=== PATIENT | male | born 1980 | race Hispanic/Latino ===

== ENCOUNTER 2017-08-23 05:43 | Day surgery (SDC) | payer OTHER ==
[2017-08-23 05:43] VITALS: BMI 31.7
--- NOTE | 2017-08-23 05:59 | ED PDOC ---
Arrival/HPI - General Chief Complaint: Chest Pain Time Seen by Provider: 08/23/17 05:47 Historian: Patient - History of Present Illness Narrative History of Present Illness (Text): 08/23/17 05:54 A 37 year old male, past smoker, whose past medical history includes hypertension and LBBB on EKG, presents to the emergency department complaining of intermittent left sided chest discomfort this morning. He states that he called Dr. Arevalo this morning who advised him to come into the emergency department. He is currently asymptomatic. The patient denies fevers, chills, headache, dizziness, shortness of breath, dyspnea on exertion, cough, abdominal pain, nausea, vomiting, diarrhea, back pain, neck pain, urinary/bowel changes, or any other complaint. PMD: Dr. 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 Arevalo Time/Duration: Other (This morning) Symptom Onset: Sudden Symptom Course: Unchanged Activities at Onset: Rest, Light Context: Home Past Medical History - Provider Review Nursing Documentation Reviewed: Yes - Infectious Disease Hx of Infectious Diseases: None - Tetanus Immunization Tetanus Immunization: Unknown - Cardiac Hx Cardiac Disorders: Yes Other/Comment: Left Bundle Branch Block. Bradycardia - Pulmonary Hx Respiratory Disorders: No - Neurological Hx Neurological Disorder: No - HEENT Hx HEENT Disorder: Yes (Wears Glasses) - Renal Hx Renal Disorder: No - Endocrine/Metabolic Hx Endocrine Disorders: No - Hematological/Oncological Hx Blood Disorders: No - Integumentary Hx Dermatological Disorder: No - Musculoskeletal/Rheumatological Hx Musculoskeletal Disorders: No - Gastrointestinal Hx Gastroesophageal Reflux: Yes - Genitourinary/Gynecological Hx Genitourinary Disorders: No - Psychiatric Hx Psychophysiologic Disorder: No Hx Substance Use: No - Surgical History Other/Comment: cardiac cath - Anesthesia Hx Anesthesia Reactions: No Hx Malignant Hyperthermia: No - Suicidal Assessment Feels Threatened In Home Enviroment: No Family/Social History - Physician Review Nursing Documentation Reviewed: Yes Family/Social History: No Known Family HX Smoking Status: Former Smoker Hx Alcohol Use: Yes (Socially) Hx Substance Use: No Hx Substance Use Treatment: No Allergies/Home Meds Allergies/Adverse Reactions: Allergies No Known Allergies Allergy (Verified 08/23/17 05:50) Home Medications: Home Meds Medication Instructions Recorded Confirmed Lisinopril 20 mg PO DAILY 01/22/13 08/23/17 Review of Systems - Physician Review All systems were reviewed & negative as marked: Yes - Review of Systems Constitutional: absent: Fevers, Night Sweats Respiratory: absent: SOB, Cough Cardiovascular: Chest Pain (intermittent, left sided chest discomfort.). absent : ABDULLAHI Gastrointestinal: absent: Abdominal Pain, Stool Changes, Diarrhea, Nausea, Vomiting Genitourinary Male: absent: Urinary Output Changes Musculoskeletal: absent: Back Pain, Neck Pain Neurological: absent: Headache, Dizziness Physical Exam Vital Signs Reviewed: Yes Vital Signs Temp Pulse Resp BP Pulse Ox 08/23/17 05:57 98.0 F 112 H 17 152/89 H 100 Temperature: Afebrile Blood Pressure: Hypertensive Pulse: Tachycardic Respiratory Rate: Normal Appearance: Positive for: Well-Appearing, Non-Toxic, Comfortable Pain Distress: None Mental Status: Positive for: Alert and Oriented X 3 - Systems Exam Head: Present: Atraumatic, Normocephalic Pupils: Present: PERRL Extroacular Muscles: Present: EOMI Conjunctiva: Present: Normal Mouth: Present: Moist Mucous Membranes Neck: Present: Normal Range of Motion Respiratory/Chest: Present: Clear to Auscultation, Good Air Exchange. No: Respiratory Distress, Accessory Muscle Use Cardiovascular: Present: Regular Rate and Rhythm, Normal S1, S2. No: Murmurs Abdomen: No: Tenderness, Distention, Peritoneal Signs Back: Present: Normal Inspection Upper Extremity: Present: Normal Inspection. No: Cyanosis, Edema Lower Extremity: Present: Normal Inspection. No: Edema Neurological: Present: GCS=15, CN II-XII Intact, Speech Normal Skin: Present: Warm, Dry, Normal Color. No: Rashes Psychiatric: Present: Alert, Oriented x 3, Normal Insight, Normal Concentration Medical Decision Making ED Course and Treatment: 08/23/17 06:00 Impression: A 37 year old male presents to the emergency department complaining of left- sided chest pain this morning. Plan: -- EKG -- Chest X-ray -- Labs -- Aspirin and Plavix -- Reassess and disposition Progress Notes: Upon review of patients myocardial stress test performed on 07/06/17 shows partially reversible defects suggestive of ischemia. EKG: Ordered, reviewed, and independently interpreted the EKG. Rate : 77 BPM Rhythm : NSR Interpretation : LBBB 08/23/17 06:55 Case was d/w PMD .Accepts to his service. on consult.Call placed to service. - Lab Interpretations Lab Results: 08/23/17 06:00 Lab Results 08/23/17 06:00: Sodium 142, Potassium 4.4, Chloride 104, Carbon Dioxide 27, Anion Gap 15, BUN 17, Creatinine 0.8, Est GFR ( Amer) > 60, Est GFR (Non- Af Amer) > 60, Random Glucose 106, Calcium 9.1, Total Bilirubin 0.4, AST 29, ALT 36, Alkaline Phosphatase 51, Lactate Dehydrogenase 412, Total Creatine Kinase 265 H, CK-MB (CK-2) Pending, CK-MB (CK-2) % Pending, Troponin I < 0.01, Total Protein 7.4, Albumin 4.5, Globulin 2.8, Albumin/Globulin Ratio 1.6 08/23/17 06:00: PT 12.4, INR 1.08, APTT 29.4 I have reviewed the lab results: Yes - RAD Interpretation Radiology Orders: 08/23/17 05:58 CHEST PORTABLE [RAD] Stat - EKG Interpretation Interpreted by ED Physician: Yes Type: 12 lead EKG - Medication Orders Current Medication Orders: Discontinued Medications Aspirin (Aspirin) 325 mg PO ONCE STA Stop: 08/23/17 05:57 Last Admin: 08/23/17 06:06 Dose: 325 mg Clopidogrel Bisulfate (Plavix) 75 mg PO STAT STA Stop: 08/23/17 05:58 Last Admin: 08/23/17 06:06 Dose: 75 mg Nitroglycerin (Nitro-Bid 2% Oint) 1 ea TOP ONCE STA Stop: 08/23/17 06:46 - Scribe Statement The provider has reviewed the documentation as recorded by the Karrieibe Mulu Toure Provider Scribe Attestation: All medical record entries made by the Scribe were at my direction and personally dictated by me. I have reviewed the chart and agree that the record accurately reflects my personal performance of the history, physical exam, medical decision making, and the department course for this patient. I have also personally directed, reviewed, and agree with the discharge instructions and disposition. Disposition/Present on Arrival - Present on Arrival Any Indicators Present on Arrival: No History of DVT/PE: Yes History of Uncontrolled Diabetes: No Urinary Catheter: No History of Decub. Ulcer: No History Surgical Site Infection Following: None - Disposition Have Diagnosis and Disposition been Completed?: Yes Diagnosis: Chest pain Disposition: HOSPITALIZED Disposition Time: 06:53 Patient Problems: Current Active Problems Problem Status Onset Chest pain Acute Condition: STABLE Discharge Instructions (ExitCare): Chest Pain (ED) Forms: i3 membrane (Gambian)
[2017-08-23 06:21] LABS: HEMOGLOBIN 14.6 g/dL (14.0-18.0); MEAN CELL VOLUME 90.9 fl (80.0-105.0); MEAN CORPUSCULAR HGB CONC 34.1 g/dl (31.0-37.0); RBC 4.71 10^6/uL (3.5-6.1); RED CELL DISTRIBUTION WIDTH 12.8 % (11.5-14.5); WHITE BLOOD COUNT 5.3 10^3/ul (4.5-11.0)
[2017-08-23 06:33] LABS: ALB/GLOB RATIO 1.6 (1.1-1.8); ALBUMIN 4.5 g/dL (3.0-4.8); ALT/SGPT 36 U/L (7-56); AST/SGOT 29 U/L (17-59); BLOOD UREA NITROGEN 17 mg/dL (7-21); CALCIUM 9.1 mg/dL (8.4-10.5); GFR AFRICAN-AMERICAN > 60; GFR NON-AFRICAN AMERICAN > 60
[2017-08-23 06:43] LABS: INR 1.08 (0.93-1.08); PARTIAL THROMBOPLASTIN TIME 29.4 Seconds (25.1-36.5); PROTHROMBIN TIME 12.4 SECONDS (9.4-12.5)
[2017-08-23 06:44] LABS: TROPONIN I < 0.01 ng/mL
[2017-08-23] MEDS ORDERED: Nitroglycerin 2% Ointment Foilpak UD TOP STA (06:45)
[2017-08-23 07:03] LABS: CK-MB 3.3 ng/mL (0.0-3.6)
[2017-08-23 07:37] VITALS: O2SAT 98
[2017-08-23] MEDS ORDERED: Lidocaine 2% Inj (20ml) ONE (08:43)
[2017-08-23] MEDS ORDERED: Midazolam 2 MG/2 ML VIAL ONE ×2 (08:43→09:03)
--- NOTE | 2017-08-23 08:54 | RAD ---
HISTORY: Chest pain. COMPARISON: 08/28/2014. FINDINGS: LUNGS: No active pulmonary disease. PLEURA: No significant pleural effusion identified, no pneumothorax apparent. CARDIOVASCULAR: Normal. OSSEOUS STRUCTURES: No significant abnormalities. VISUALIZED UPPER ABDOMEN: Normal. OTHER FINDINGS: None. IMPRESSION: No active disease. No significant interval change compared to the prior examination(s).
--- NOTE | 2017-08-23 09:11 | CARD ---
APPROVED REPORT EKG Measurement Heart [id number] <Conclusion> Normal sinus rhythm Left bundle branch block Abnormal ECG
--- NOTE | 2017-08-23 11:12 | CARDCATH ---
PROCEDURE DATE: 08/23/2017 HISTORY: The patient is a 37-year-old male with multiple cardiac risk factors who presented to the emergency room with chest pain including chest pain at rest. In reviewing his chart, he had a stress test performed at [facility] recently, which revealed ischemic areas in the anterior apical segment. The patient's past medical history includes a history of cardiomyopathy. Because of this, the patient is brought up for emergent cardiac catheterization. PROCEDURE: Left heart catheterization with coronary arteriography and left ventriculogram. The right femoral artery was cannulated with a 6-Luxembourger sheath. There were no complications. I performed moderate sedation which included the presence of an independent trained observer that assisted in monitoring the patient's level of consciousness and physiologic status. After administration of Versed and fentanyl, my intra-service time was 15 minutes. Findings on catheterization revealed the left main artery is unremarkable. The LAD revealed intimal irregularities including a segment in the midportion that was intramyocardial that resulted in a narrowing of the vessel of 70% during systole. The diagonal vessels were free of significant disease. The circumflex artery and obtuse marginal branches were free of significant disease. The right coronary artery selectively cannulized and found to be a dominant vessel. The RCA was free of significant disease. Left ventriculogram was performed in the SIMMONS projection. In the SIMMONS projection, wall motion was mildly global hypokinetic with an EF of approximately 50%. Angio-Seal was used to close the femoral artery site. The patient tolerated the procedure well. In summary, the procedure revealed single-vessel CAD with an LAD that was intramyocardial that resulted in the systolic narrowing of approximately 60%-70%. LV function was mildly hypokinetic, but improved from previous with an EF of 50%. Given these findings, I have discussed this with the patient in detail. His treatment should be a cardiac risk reduction program which should include exercise. The patient understands and agrees. Followup and instructions have been given to the patient in detail. Stephen Arevalo MD
[2017-08-23] MEDS ORDERED: Sodium Chloride 0.9% 1,000 ML IV SCH (11:15)
--- NOTE | 2017-08-23 12:16 | HP ---
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 He is a 37-year-old male, past smoker, whose past medical history includes hypertension and a left bundle-branch block. Presents with chief complaint of intermittent left-sided chest discomfort this morning. He states that he called Dr. Arevalo this morning who advised him to come in to the emergency department. He is currently asymptomatic. He denies fever, chills or cough. FAMILY HISTORY: Noncontributory. SOCIAL HISTORY: The patient is a former smoker and uses alcohol socially. ALLERGIES: NONE. REVIEW OF SYSTEMS: Unremarkable. PHYSICAL EXAMINATION: VITAL SIGNS: Temperature is 98, pulse of 112, respiratory is 18, blood pressure 150/88 and pulse ox is 100%. HEENT: PERRLA, EOMI. NECK: Supple. He has a full range of motion. No adenopathy or bruits are present. LUNGS: Clear to auscultation and percussion bilaterally. HEART: With a regular rate and rhythm. No murmurs, rubs or gallops. ABDOMEN: Benign. EXTREMITIES: Show no edema. NEUROLOGICAL: The patient is intact. LABORATORY DATA: Lab values, WBC of 5.3, hemoglobin and hematocrit of 14.6 and 42.8. Chemistry is entirely normal. Troponin is less than 0.1. EKG: Sinus rhythm with a bundle-branch block. IMPRESSION: The patient is being admitted for, 1. Chest pain. 2. Hypertension. He is currently in the catheterization lab. Dr. Arevalo is performing a catheterization. Dontrell Flowers MD
[2017-08-23 14:20] VITALS: RESP 18; TEMP 98.4
[2017-08-23 16:59] VITALS: BP 135/79; PULSE 63
--- NOTE | 2017-08-24 16:17 | DS ---
ADMITTING DIAGNOSIS: Unstable angina. DISCHARGE DIAGNOSIS: Single vessel coronary artery disease with an intramyocardial LAD. SECONDARY DIAGNOSES: Hypertension, hyperlipidemia and tobacco dependence. CONSULTATION: Dr. Arevalo (Cardiology). IMAGING STUDIES: Chest x-ray demonstrated no acute pathology. PROCEDURE: Cardiac catheterization which demonstrated single vessel CAD with an LAD that is intramyocardial with resultant systolic narrowing of approximately 60-70% with a mildly hypokinetic left ventricular function with an ejection fraction of 50%. HISTORY OF PRESENT ILLNESS: The patient is a 37 year old man with a past medical history of hypertension, hyperlipidemia and tobacco dependence who presented for electively scheduled cardiac catheterization after undergoing an equivocal nuclear stress test at [facility] for evaluation of unstable angina. The patient was taken to the cardiac catheterization lab with Dr. Arevalo with findings demonstrating single vessel CAD with an LAD with intimal irregularities to the mid portion that was intramyocardial that resulted in narrowing of the vessel by 60-70% during systole. No acute intervention was performed and the patient was transferred to the telemetry soliz after his cardiac catheterization. HOSPITAL COURSE: The patient's post cardiac catheterization course was unremarkable. He was advised that the etiology of the intermittent chest discomfort is likely secondary to compression of this intramyocardial LAD during systole and was advised that he would benefit from involvement in a cardiac risk reduction program to which he expressed understanding. The remainder of the patient's hospital stay was unremarkable and he was deemed stable for discharge to home later in the day. CONDITION: Good, improved. DISPOSITION: Home. DISCHARGE MEDICATION: Lisinopril 20 mg p.o. daily. DISCHARGE INSTRUCTIONS: The patient was advised that if he develops any pain of his cardiac catheterization site, any bleeding, development of hematoma or sensation of fullness, to present to his PMD or to the nearest ED immediately. FOLLOWUP: The patient is to follow up with his PMD as scheduled. The patient is to follow up with Dr. Arevalo as scheduled. Shon Flowers MD JEWELL
== END 2017-08-23 18:59 | disposition home or self-care (01) ==
LOC: ED 05:43 → ERH 06:48 → UNDOADMOB 06:48 → CATH 06:48 → 2RNO 09:56 → ERH 09:56 → 2RNO 11:21 → CATH 18:59
PROVIDERS: ATTEND Internal Medicine Cardiovascular Disease
DX: I25.110 Atherosclerotic heart disease of native coronary artery with unstable angina pectoris (principal); I42.9 Cardiomyopathy, unspecified; I10 Essential (primary) hypertension; I44.7 Left bundle-branch block, unspecified; E78.5 Hyperlipidemia, unspecified; F17.200 Nicotine dependence, unspecified, uncomplicated
CPT/HCPCS: 71045; 80053; 82550; 82553; 83615; 84484; 85027; 85610; 85730; 86850; 86900; 93005; 93458; 99152; 99153; 99284; C1760; C1769; C2629; J1644; J2250; J3010; J7030; J7040